=== PATIENT | male | born 1985 | race Caucasian/White ===

== ENCOUNTER 2023-02-25 23:05 | Emergency (ER) | payer MEDICARE, OTHER, MEDICAID, SELFPAY ==
[2023-02-25 23:06] VITALS: BP 116/73; PULSE 98; RESP 16; TEMP 36.6; O2SAT 99; BMI 20.3
--- NOTE | 2023-02-25 23:12 | DI.RAD.S_ITS ---
PROCEDURE: XR SHOULDER LT MIN 2V INDICATIONS: Pain TECHNIQUE: 3 views of the shoulder were acquired. COMPARISON: None. FINDINGS: Bones: There are postsurgical changes consistent with prior open reduction internal fixation of a left humeral head fracture. A lateral fixation plate and multiple fixation screws appear intact without suspicious lucencies. There is a healing fracture of the humeral head. No suspicious bony lesions. Visualized ribs appear intact. Soft tissues: No suspicious soft tissue calcifications. IMPRESSION: 1. Postsurgical changes status post ORIF of a healing humeral head fracture. Dictated by: Toñito Meyer M.D. on 02/26/2023 at 1:09 Approved by: Toñito Meyer M.D. on 02/26/2023 at 1:11
--- NOTE | 2023-02-26 00:53 | ED_ITS ---
HPI - Extremity Problem General Chief complaint: Extremity Problem,Nontraumatic Stated complaint: L shoulder pain Time Seen by Provider: 02/26/23 00:17 Source: patient and EMS Mode of arrival: EMS History of Present Illness HPI Narrative: 37-year-old male who at the end of last year she sustained a proximal humerus fracture. Had a ORIF. Is here for evaluation left shoulder discomfort. He states that this is his normal discomfort is just somewhat worse than normal. He reports no new injuries. He also states he is having foot pain but that is only associated with wearing certain types of shoes. States he does not take any pain medicine for a shoulder. Does not want any pain medication. He just wanted an x-ray of his shoulder because of the discomfort he is having in his prior injury. Related Data Allergies Allergy/AdvReac Type Severity Reaction Status Date / Time shellfish derived Allergy Swelling Verified 02/25/23 23:13 of Lip/Tongue/Throat Review of Systems Constitutional Constitutional: Reports system reviewed and no additional complaints, except as documented Musculoskeletal Musculoskeletal: Reports system reviewed and no additional complaints, except as documented Integumentary/Breasts Skin/Breast: Reports system reviewed and no additional complaints, except as documented Neurologic Neurologic: Reports system reviewed and no additional complaints, except as documented Patient History Social History Smoking Status: Current every day smoker Smoking Status: Current every day smoker alcohol intake frequency: 3 or more drinks per day Substance Use Type: marijuana Exam Initial Vital Signs Initial Vital Signs: Vital Signs Temperature 97.9 F 02/25/23 23:06 Pulse Rate 98 H 02/25/23 23:06 Respiratory Rate 16 02/25/23 23:06 Blood Pressure 116/73 02/25/23 23:06 Pulse Oximetry 99 02/25/23 23:06 Oxygen Delivery Method Room Air 02/25/23 23:06 Skin General: no rashes or lesions noted Neuro General: patient alert and patient awake Sensory Exam: no sensory deficits noted Extrem Other: No gross deformities. Full range motion of left shoulder. Course Orders Ordered: ED Orders 02/25/23 23:12 XR shoulder LT min 2V Stat Vital Signs Vital signs: Vital Signs - 8 hr 02/25/23 23:06 02/26/23 01:00 Temperature 97.9 F Pulse Rate 98 H 98 H Respiratory Rate 16 18 Blood Pressure 116/73 129/74 Pulse Oximetry 99 98 Oxygen Delivery Method Room Air Room Air MDM - Extremity (Nontraumatic) Imaging Data Extremity x-ray #1: Radiologist's Impression: PROCEDURE:? XR SHOULDER LT MIN 2V ? INDICATIONS:? Pain ? TECHNIQUE:? 3 views of the shoulder were acquired.? ? COMPARISON:? None. ? FINDINGS:? ? Bones:? There are postsurgical changes consistent with prior open reduction internal fixation of a left humeral head fracture.? A lateral fixation plate and multiple fixation screws appear intact without suspicious lucencies.? There is a healing fracture of the humeral head.? No suspicious bony lesions.? Visualized ribs appear intact.? ? Soft tissues:? No suspicious soft tissue calcifications.? ? IMPRESSION:? ? 1. Postsurgical changes status post ORIF of a healing humeral head fracture. [facility] Narrative Medical decision making narrative: X-ray shows healing fracture status post ORIF with a new injuries. I discuss this with the patient. Was no indication for further workup here in the ER. He also states that his foot pain is only when he wear certain shoes and he is not having any foot neck over the time of my evaluation. Will discharge patient home. Discharge Plan Departure Patient Disposition: Home Clinical Impression: Left shoulder pain Instructions: How To Perform RICE (Rest, Ice, Compress, Elevate), DI for Shoulder Pain Activity Restrictions/Additional Instructions: You can take Tylenol and/or ibuprofen for any discomfort. Contact your primary doctor for follow-up. Return to the emergency department for new or worsening symptoms. Stand Alone Forms: Patient Portal/API
[2023-02-26 01:00] VITALS: BP 129/74; PULSE 98; RESP 18; O2SAT 98
== END 2023-02-26 01:00 | disposition home or self-care (01) ==
PROVIDERS: Emergency Provider Emergency Medicine
DX: M25.512 Pain in left shoulder (principal)
CPT/HCPCS: 73030; 99281; 99283

== ENCOUNTER 2023-02-26 05:19 | Emergency (ER) | payer MEDICARE, MEDICAID, SELFPAY ==
[2023-02-26 05:26] VITALS: BP 127/71; PULSE 116; RESP 18; TEMP 36.9; O2SAT 97; BMI 23.5
--- NOTE | 2023-02-26 05:42 | ED.PSYCH ---
HPI - Psych <Román Root DO - Last Filed: 03/01/23 18:02> General Chief Complaint: Psychiatric Symptoms Stated Complaint: SI Time Seen by Provider: 02/26/23 05:23 Source: patient Mode of arrival: Ambulatory Limitations: no limitations History of Present Illness HPI Narrative: Patient is a 37-year-old male. He was here in the emergency department few hours ago for evaluation of left-sided shoulder discomfort. He had x-ray which showed no acute pathology. The ORIF hardware was still in place and things appear to be healing well. Patient was discharged. He came to the emergency department for that visit from a alcohol detox facility. He had been there for approximately 3 days. His last drink was about 1 week ago. After he was discharged patient did not have a ride back to that facility given the time a day. I received a call from the facility and they told me that the reason that he came to the emergency department was not necessarily for shoulder discomfort but because he had anxiety, agitation and suicidal ideation. Patient stated that he did not mentioned this suicidal ideation during that visit because he was hoping that it would pass. During the time that he was waiting here for arrived to go back to the facility he started to have more anxiety. He stated that the suicidal ideation did not go away. He currently does not have any specific plan. He states that he feels that he would ?be better off ? he stated that he has a life insurance policy that would help his kids. Approximately 1 year ago he stated that he did attempt suicide by overdosing. He was admitted to a mental health facility at that time. He does have a seizure disorder and does take Keppra. He also has a history of generalized anxiety disorder, depression and PTSD. He does take medications for this. He states he has been taking them as directed. He does not currently have a mental health provider as he has moved to the local area and has not established with a provider here locally. Patient is also homeless. Related Data Allergies Allergy/AdvReac Type Severity Reaction Status Date / Time shellfish derived Allergy Swelling Verified 02/25/23 23:13 of Lip/Tongue/Throat Review of Systems <Román Root DO - Last Filed: 03/01/23 18:02> Cardiovascular Comments: Denies chest pain Respiratory Comments: No shortness of breath Gastrointestinal Comments: Denies abdominal pain Musculoskeletal Comments: Has left shoulder pain Psychiatric Psychiatric: Reports system reviewed and no additional complaints, except as documented <Isa Jay DO - Last Filed: 02/27/23 10:57> Review of Systems ROS Unobtainable: All systems reviewed & are unremarkable except as noted in HPI and below Patient History <Román Root DO - Last Filed: 03/01/23 18:02> Social History Smoking Status: Current every day smoker Smoking Status: Current every day smoker alcohol intake frequency: 3 or more drinks per day Substance Use Type: marijuana Exam <Román Root DO - Last Filed: 03/01/23 18:02> Initial Vital Signs Initial Vital Signs: Vital Signs Temperature 98.4 F 02/26/23 05:26 Pulse Rate 116 H 02/26/23 05:26 Respiratory Rate 18 02/26/23 05:26 Blood Pressure 127/71 02/26/23 05:26 Pulse Oximetry 97 02/26/23 05:26 Oxygen Delivery Method Room Air 02/26/23 05:26 Const General: No ill appearing Resp Effort & Inspection: normal respiratory effort Cardio Rate: regular rate GI Inspection: non-distended Extrem General: normal to inspection Psych Other: Patient is calm, does expressed suicide ideation, no homicidal ideation, does have flat affect, is not manic. <Isa Jay DO - Last Filed: 02/27/23 10:57> Initial Vital Signs Initial Vital Signs: Vital Signs Temperature 98.4 F 02/26/23 05:26 Pulse Rate 116 H 02/26/23 05:26 Respiratory Rate 18 02/26/23 05:26 Blood Pressure 127/71 02/26/23 05:26 Pulse Oximetry 97 02/26/23 05:26 Oxygen Delivery Method Room Air 02/26/23 05:26 Course <Román Root DO - Last Filed: 03/01/23 18:02> Orders Ordered: Discontinued Medications Acetaminophen (Acetaminophen 325 Mg Tablet) 650 mg PO Q6H PRN PRN Reason: Fever/Mild Pain (1-3) Aspirin (Aspirin 81 Mg Chew Tab) 81 mg PO DAILY [facility] Last Admin: 02/26/23 09:49 Dose: 81 mg Documented By: RB Escitalopram Oxalate (Escitalopram 10 Mg Tablet) 20 mg PO DAILY [facility] Last Admin: 02/26/23 09:50 Dose: 20 mg Documented By: RB Gabapentin (Gabapentin 300 Mg Capsule) 300 mg PO TID [facility] Last Admin: 02/26/23 09:50 Dose: 300 mg Documented By: RB Levetiracetam (Levetiracetam 250 Mg Tablet) 500 mg PO BID [facility] Last Admin: 02/26/23 09:49 Dose: 500 mg Documented By: RB Lidocaine (Lidocaine Patch 1 Each Adh..Patch) 1 each TOP DAILY [facility] Nystatin (Nystatin Cream 30 Gm) 1 applic TOP DAILY [facility] Olanzapine (Olanzapine Odt 10 Mg Tab) 10 mg PO BEDTIME [facility] Oxybutynin (Oxybutynin 5 Mg Tablet) 5 mg PO TID [facility] Oxycodone HCl (Oxycodone Ir 5 Mg Tablet) 5 mg PO Q6H PRN PRN Reason: Pain, Moderate (4-6) Quetiapine Fumarate (Quetiapine 25 Mg Tablet) 12.5 mg PO BEDTIME [facility] Tamsulosin HCl (Tamsulosin 0.4 Mg Capsule) 0.4 mg PO DAILY [facility] Vital Signs Vital signs: Vital Signs - 8 hr 02/26/23 05:26 02/26/23 09:34 Temperature 98.4 F Pulse Rate 116 H 55 L Respiratory Rate 18 Blood Pressure 127/71 110/67 Pulse Oximetry 97 99 Oxygen Delivery Method Room Air Room Air <Isa Jay, DO - Last Filed: 02/27/23 10:57> Orders Ordered: Discontinued Medications Acetaminophen (Acetaminophen 325 Mg Tablet) 650 mg PO Q6H PRN PRN Reason: Fever/Mild Pain (1-3) Aspirin (Aspirin 81 Mg Chew Tab) 81 mg PO DAILY [facility] Last Admin: 02/26/23 09:49 Dose: 81 mg Documented By: RB Escitalopram Oxalate (Escitalopram 10 Mg Tablet) 20 mg PO DAILY [facility] Last Admin: 02/26/23 09:50 Dose: 20 mg Documented By: RB Gabapentin (Gabapentin 300 Mg Capsule) 300 mg PO TID [facility] Last Admin: 02/26/23 09:50 Dose: 300 mg Documented By: RB Levetiracetam (Levetiracetam 250 Mg Tablet) 500 mg PO BID [facility] Last Admin: 02/26/23 09:49 Dose: 500 mg Documented By: RB Lidocaine (Lidocaine Patch 1 Each Adh..Patch) 1 each TOP DAILY [facility] Nystatin (Nystatin Cream 30 Gm) 1 applic TOP DAILY [facility] Olanzapine (Olanzapine Odt 10 Mg Tab) 10 mg PO BEDTIME [facility] Oxybutynin (Oxybutynin 5 Mg Tablet) 5 mg PO TID [facility] Oxycodone HCl (Oxycodone Ir 5 Mg Tablet) 5 mg PO Q6H PRN PRN Reason: Pain, Moderate (4-6) Quetiapine Fumarate (Quetiapine 25 Mg Tablet) 12.5 mg PO BEDTIME [facility] Tamsulosin HCl (Tamsulosin 0.4 Mg Capsule) 0.4 mg PO DAILY [facility] Vital Signs Vital signs: Vital Signs - 8 hr 02/26/23 05:26 02/26/23 09:34 Temperature 98.4 F Pulse Rate 116 H 55 L Respiratory Rate 18 Blood Pressure 127/71 110/67 Pulse Oximetry 97 99 Oxygen Delivery Method Room Air Room Air MDM - Psych <Román Root DO - Last Filed: 03/01/23 18:02> Lab Data Attestation: I reviewed the patient's lab results. 02/26/23 06:15 02/26/23 06:15 Labs: Lab Results 02/26/23 02/26/23 02/26/23 Range/Units 05:50 06:15 06:15 WBC 7.4 (4.5-11.0) X10^3/uL RBC 3.81 L (4.5-5.9) X10^6/uL Hgb 12.2 L (13.5-17.5) g/dL Hct 35.7 L (41-53) % MCV 93.7 (80-100) fL MCH 32.1 (26-34) PG MCHC 34.3 (30-36) % RDW 13.9 (11.6-14.8) % Plt Count 254 (150-400) X10^3/uL Neut % (Auto) 58.7 (50-75) % Lymph % (Auto) 27.5 (25-40) % [place] % (Auto) 9.0 (3-14) % Eos % (Auto) 4.1 H (2-4) % Baso % (Auto) 0.7 (0-2) % Neut # (Auto) 4400 (1151-1045) /uL Lymph # (Auto) 2000 (2071-4098) /uL [place] # (Auto) 700 (0-900) /uL Eos # (Auto) 300 (0-450) /uL Baso # (Auto) 100 (0-100) /uL Sodium 139 (137-145) mmol/L Potassium 3.4 (3.4-5.1) mmol/L Chloride 104 (98-107) mmol/L Carbon Dioxide 28 (22-32) mmol/L BUN 9 (9-20) mg/dL Creatinine 1.21 (0.66-1.25) mg/dL Estimated GFR > 60 (>60) mL/min BUN/Creatinine Ratio 7.4 (6-22) Glucose 75 (70-100) mg/dL Calcium 8.4 (8.4-10.2) mg/dL TSH (0.47-4.68) uIU/mL U Opiates 300ng/mL cut Negative (Negative) Ur Oxycodone Screen Negative (Negative) Urine Methadone Screen Negative (Negative) Ur Barbiturates Screen Negative (Negative) U Tricyclic Antidepress Negative (Negative) Ur Phencyclidine Scrn Negative (Negative) Ur Amphetamines Screen Negative (Negative) U Methamphetamines Scrn Negative (Negative) Ur MDMA Scrn (Ecstasy) Negative (Negative) U Benzodiazepines Scrn Positive H (Negative) Urine Cocaine Screen Negative (Negative) U Marijuana (THC) Screen Negative (Negative) Ethyl Alcohol < 10 ( - 10) mg/dL 02/26/ Range/Units 06:15 WBC (4.5-11.0) X10^3/uL RBC (4.5-5.9) X10^6/uL Hgb (13.5-17.5) g/dL Hct (41-53) % MCV (80-100) fL MCH (26-34) PG MCHC (30-36) % RDW (11.6-14.8) % Plt Count (150-400) X10^3/uL Neut % (Auto) (50-75) % Lymph % (Auto) (25-40) % [place] % (Auto) (3-14) % Eos % (Auto) (2-4) % Baso % (Auto) (0-2) % Neut # (Auto) (9021-2481) /uL Lymph # (Auto) (2923-0293) /uL [place] # (Auto) (0-900) /uL Eos # (Auto) (0-450) /uL Baso # (Auto) (0-100) /uL Sodium (137-145) mmol/L Potassium (3.4-5.1) mmol/L Chloride (98-107) mmol/L Carbon Dioxide (22-32) mmol/L BUN (9-20) mg/dL Creatinine (0.66-1.25) mg/dL Estimated GFR (>60) mL/min BUN/Creatinine Ratio (6-22) Glucose (70-100) mg/dL Calcium (8.4-10.2) mg/dL TSH 2.29 (0.47-4.68) uIU/mL U Opiates 300ng/mL cut (Negative) Ur Oxycodone Screen (Negative) Urine Methadone Screen (Negative) Ur Barbiturates Screen (Negative) U Tricyclic Antidepress (Negative) Ur Phencyclidine Scrn (Negative) Ur Amphetamines Screen (Negative) U Methamphetamines Scrn (Negative) Ur MDMA Scrn (Ecstasy) (Negative) U Benzodiazepines Scrn (Negative) Urine Cocaine Screen (Negative) U Marijuana (THC) Screen (Negative) Ethyl Alcohol ( - 10) mg/dL MDM Narrative Medical decision making narrative: Patient is medically cleared. Social work consult is placed. Care turned over to Dr. Jay to follow-up and disposition. The patient is voluntary. <Isa Jay, DO - Last Filed: 02/27/23 10:57> Lab Data Labs: Lab Results 02/26/23 02/26/23 02/26/23 Range/Units 05:50 06:15 06:15 WBC 7.4 (4.5-11.0) X10^3/uL RBC 3.81 L (4.5-5.9) X10^6/uL Hgb 12.2 L (13.5-17.5) g/dL Hct 35.7 L (41-53) % MCV 93.7 (80-100) fL MCH 32.1 (26-34) PG MCHC 34.3 (30-36) % RDW 13.9 (11.6-14.8) % Plt Count 254 (150-400) X10^3/uL Neut % (Auto) 58.7 (50-75) % Lymph % (Auto) 27.5 (25-40) % [place] % (Auto) 9.0 (3-14) % Eos % (Auto) 4.1 H (2-4) % Baso % (Auto) 0.7 (0-2) % Neut # (Auto) 4400 (2336-7916) /uL Lymph # (Auto) 2000 (3321-1575) /uL [place] # (Auto) 700 (0-900) /uL Eos # (Auto) 300 (0-450) /uL Baso # (Auto) 100 (0-100) /uL Sodium 139 (137-145) mmol/L Potassium 3.4 (3.4-5.1) mmol/L Chloride 104 (98-107) mmol/L Carbon Dioxide 28 (22-32) mmol/L BUN 9 (9-20) mg/dL Creatinine 1.21 (0.66-1.25) mg/dL Estimated GFR > 60 (>60) mL/min BUN/Creatinine Ratio 7.4 (6-22) Glucose 75 (70-100) mg/dL Calcium 8.4 (8.4-10.2) mg/dL TSH (0.47-4.68) uIU/mL U Opiates 300ng/mL cut Negative (Negative) Ur Oxycodone Screen Negative (Negative) Urine Methadone Screen Negative (Negative) Ur Barbiturates Screen Negative (Negative) U Tricyclic Antidepress Negative (Negative) Ur Phencyclidine Scrn Negative (Negative) Ur Amphetamines Screen Negative (Negative) U Methamphetamines Scrn Negative (Negative) Ur MDMA Scrn (Ecstasy) Negative (Negative) U Benzodiazepines Scrn Positive H (Negative) Urine Cocaine Screen Negative (Negative) U Marijuana (THC) Screen Negative (Negative) Ethyl Alcohol < 10 ( - 10) mg/dL 02/26/23 Range/Units 06:15 WBC (4.5-11.0) X10^3/uL RBC (4.5-5.9) X10^6/uL Hgb (13.5-17.5) g/dL Hct (41-53) % MCV (80-100) fL MCH (26-34) PG MCHC (30-36) % RDW (11.6-14.8) % Plt Count (150-400) X10^3/uL Neut % (Auto) (50-75) % Lymph % (Auto) (25-40) % [place] % (Auto) (3-14) % Eos % (Auto) (2-4) % Baso % (Auto) (0-2) % Neut # (Auto) (9463-1024) /uL Lymph # (Auto) (9813-4768) /uL [place] # (Auto) (0-900) /uL Eos # (Auto) (0-450) /uL Baso # (Auto) (0-100) /uL Sodium (137-145) mmol/L Potassium (3.4-5.1) mmol/L Chloride (98-107) mmol/L Carbon Dioxide (22-32) mmol/L BUN (9-20) mg/dL Creatinine (0.66-1.25) mg/dL Estimated GFR (>60) mL/min BUN/Creatinine Ratio (6-22) Glucose (70-100) mg/dL Calcium (8.4-10.2) mg/dL TSH 2.29 (0.47-4.68) uIU/mL U Opiates 300ng/mL cut (Negative) Ur Oxycodone Screen (Negative) Urine Methadone Screen (Negative) Ur Barbiturates Screen (Negative) U Tricyclic Antidepress (Negative) Ur Phencyclidine Scrn (Negative) Ur Amphetamines Screen (Negative) U Methamphetamines Scrn (Negative) Ur MDMA Scrn (Ecstasy) (Negative) U Benzodiazepines Scrn (Negative) Urine Cocaine Screen (Negative) U Marijuana (THC) Screen (Negative) Ethyl Alcohol ( - 10) mg/dL MDM Narrative Medical decision making narrative: Patient is medically cleared. Social work consult is placed. Care turned over to Dr. Jay to follow-up and disposition. The patient is voluntary. 02/26/23 Pierre: Patient signed out to myself. Patient seen and evaluated by myself. Initially did not tell the night provider that he was having suicidal ideation or that that was why he was sent it was not really report by EMS. Patient was seen for shoulder pain did not have an x-ray that was negative. [facility] called back and updated when they were asking about plan for disposition. Patient did admit to suicidal ideation to Dr. Root he denies any intent or plan. No active hallucinations overnight or appreciated by staff. He is denying any issues currently. He is interested in seeking treatment for his depression and sounds like intermittent suicidal ideation. He would be agreeable to return to eye to if they are agreeable to have him. Plan to continue his home medications, he notes a little bit of a headache but defers anything at this time. Was sleeping this morning when I 1st arrived. Patient has had medical clearance, [facility] was available on Tuesday the but does feel appropriate for voluntary placement. If patient is not accepted back will seek placement elsewhere. Patient accepted back at [facility], plan for transfer after 1500 today. Patient's current medications ordered this morning. Discharge Plan Departure Patient Disposition: [facility]fer [facility] Clinical Impression: Depression with suicidal ideation
[2023-02-26 06:23] LABS: Add Manual Diff / Slide Review NO; Basophils Absolute Auto 100 /uL (0-100); Basophils Percent Auto 0.7 % (0-2); Eosinophils Absolute Auto 300 /uL (0-450); Eosinophils Percent Auto 4.1 % (2-4); Hematocrit 35.7 % (41-53); Hemoglobin 12.2 g/dL (13.5-17.5); Lymphocytes Absolute Auto 2000 /uL (1100-4500); Lymphocytes Percent Auto 27.5 % (25-40); Mean Corpuscular HGB Conc 34.3 % (30-36); Mean Corpuscular Hemoglobin 32.1 PG (26-34); Mean Corpuscular Volume 93.7 fL (80-100); Monocytes Absolute Auto 700 /uL (0-900); Neutrophils Absolute Auto 4400 /uL (1500-7000); Neutrophils Percent Auto 58.7 % (50-75); Platelet Count 254 X10^3/uL (150-400); Red Blood Cell Count 3.81 X10^6/uL (4.5-5.9); Red Cell Distribution Width 13.9 % (11.6-14.8); White Blood Cell Count 7.4 X10^3/uL (4.5-11.0)
[2023-02-26 06:33] LABS: BUN Creatinine Ratio 7.4 (6-22); Blood Urea Nitrogen 9 mg/dL (9-20); Calcium 8.4 mg/dL (8.4-10.2); Carbon Dioxide 28 mmol/L (22-32); Chloride 104 mmol/L (98-107); Estimated Glomerular Filt Rate > 60 mL/min (>60); Ethanol (ETOH) < 10 mg/dL; Glucose 75 mg/dL (70-100); HEMOLYSIS 29 (0-50); Potassium 3.4 mmol/L (3.4-5.1); Sodium 139 mmol/L (137-145)
[2023-02-26 06:46] LABS: UR Morphine/Opiate cutoff 300 Negative (Negative); Ur Creatinine 20 (Normal); Ur Specific Gravity 1.015 (Normal); Urine Amphetamines Negative (Negative); Urine Barbiturates Negative (Negative); Urine Benzodiazepines Positive (Negative); Urine Cocaine Negative (Negative); Urine MDMA Negative (Negative); Urine Methadone Negative (Negative); Urine Methamphetamines Negative (Negative); Urine Oxycodone Negative (Negative); Urine Phencyclidine Negative (Negative); Urine Tetrahydrocannabinol Negative (Negative); Urine Tricyclic Antidepressant Negative (Negative); Urine pH 5 (Normal)
[2023-02-26 07:16] LABS: Thyroid Stimulating Hormone 2.29 uIU/mL (0.47-4.68)
[2023-02-26 09:34] VITALS: BP 110/67; PULSE 55; O2SAT 99
[2023-02-26] MEDS: levETIRAcetam 250 MG TABLET 500 MG PO (09:49)
[2023-02-26] MEDS: ASPIRIN 81 MG CHEW TAB PO (09:49)
[2023-02-26] MEDS: GABAPENTIN 300 MG CAPSULE PO (09:50)
[2023-02-26] MEDS: ESCITALOPRAM 10 MG TABLET 20 MG PO (09:50)
--- NOTE | 2023-02-26 11:15 | PC.NURSE ---
Safe handoff report from ELFEGO Harris. Pt is sleeping, respirations even and unlabored.
[2023-02-26 12:56] VITALS: BP 88/62; PULSE 63; O2SAT 91
[2023-02-26 13:40] VITALS: BP 89/59; PULSE 58; O2SAT 95
--- NOTE | 2023-02-26 14:02 | PC.NURSE ---
This nurse gave report to DELPHINE Colunga from [facility]. There were no further questions. They were given this department phone number prior to discharge. Patient blood pressure low but asymptomatic and skin remains pink, warm and dry. Provider notified and approved patient to continue with transfer.
--- NOTE | 2023-02-26 15:02 | PC.NURSE ---
This RN attempted to call report on this patient at the time the patient left but ELFEGO Griffith was unavailable at that time. The facility asked this RN to call report back in 40 minutes. This RN did so and gave report to ELFEGO Griffith. All questions were answered and this department phone number was given if there were any further questions.
== END 2023-02-26 14:08 ==
PROVIDERS: Emergency Medicine; Emergency Provider Emergency Medicine
DX: R45.851 Suicidal ideations (principal); F32.A Depression, unspecified
CPT/HCPCS: 36415; 80048; 80305; 80320; 84443; 85025; 99284